=== PATIENT | male | born 2000 | race Caucasian/White ===

== ENCOUNTER 2021-06-24 21:42 | Inpatient (IN) | payer OTHER ==
[~2021-06-24] VITALS: Ht 106.7 cm; Wt 44.0 kg
--- NOTE | 2021-06-24 23:45 | NUR ---
RT NOTE Pt rec'd on mech vent via Shiley 6 DCT. pt on noted settings given from RN in ambulance. Pt shows no signs of resp distress or sob. track is patent and secured. Pt sx'd for thick mod amt of pale yellow secretions. Vent plugged into red outlet. Alarms are set and audible. Ambu bag and emergency spare trach is bedside. Will continue to monitor closely. Addendum: 06/25/21 at 0214 by SATYA CAMPBELL RT Amended: Links added.
[2021-06-25] MEDS ORDERED: ONDANSETRON HCL/PF 4 MG/2 ML VIAL IVP PRN
[2021-06-25] MEDS ORDERED: LORAZEPAM INJ 2 MG/ML VIAL IV PRN ×2
[2021-06-25] MEDS ORDERED: HYDROCODONE/APAP 5/325MG TABLET GT PRN
[2021-06-25] MEDS ORDERED: MORPHINE SULFATE INJ 2 MG/ML DISP.SYRIN IV PRN
[2021-06-25] MEDS ORDERED: IV NS 0.9% 1,000 ML IV PRN
[2021-06-25] MEDS ORDERED: Z GUARD REMEDY 2 OZ OINT TP PRN
[2021-06-25 00:04] VITALS: BP 109/66
--- NOTE | 2021-06-25 00:23 | NUR ---
TELE-TD/CURVE SAW OPERATOR DR. BEAR AT BEDSIDE TO EVALUATE PT. PT HAS A LEFT FEMORAL CENTRAL LINE THAT CAN NOT BE IDENTIFIED AT THIS TIME. PER DR. BEAR DO NOT USE THIS LINE. WILL CONTINUE TO MONITOR THE PT.
[2021-06-25] MEDS ORDERED: METRONIDAZOLE 500MG/ NS 100ML 100 ML IV ONE ×2 (00:27→05:38)
[2021-06-25] MEDS ORDERED: ALBUTEROL SULFATE 8 GM HFA.AER.AD IH PRN (00:30)
[2021-06-25] MEDS ORDERED: DEXTROSE 50%-WATER 50 ML DISP.SYRIN IV PRN (00:30)
[2021-06-25] MEDS: METRONIDAZOLE 500MG/ NS 100ML 500 MG in PREMIX 1 EA IV SCH ×5 (00:31→23:47)
[2021-06-25] MEDS ORDERED: VANCOMYCIN HCL 0.75 GM in IV D5W 250 ML IV ONE (02:00)
[2021-06-25] MEDS ORDERED: VANCOMYCIN 1 GM VIAL ONE (02:21)
[2021-06-25] MEDS: ENOXAPARIN SODIUM 30 MG/0.3 ML DISP.SYRIN SQ SCH ×2 (02:22→21:12)
--- NOTE | 2021-06-25 02:26 | NUR ---
MED NOTE: ALL MEDICATIONS ADMINISTERED UNDER VERIFIED DOSES IN eMAR.
--- NOTE | 2021-06-25 03:31 | NUR ---
TELE-TD/MANAGER BALANCE PT NOTED TO BE VERY FLUSHED POST VANCO INFUSION. DR. BEAR MADE AWARE NEW ORDERS RECEIVED AND CARRIED OUT.
[2021-06-25 04:00] VITALS: BP 113/66
[2021-06-25] MEDS: diphenhydrAMINE HCL 50 MG/ML VIAL IV PRN ×2 (04:09→18:28)
[2021-06-25 04:29] LABS: ABG BASE EXCESS -2.1 mmol/L; ABG OXYGEN SATURATION 98.4 % (92.0-98.5); ABG PCO2 40.1 mmHg (35.0-45.0); ABG PH 7.374 (7.350-7.450); AaDO2 106.1 mmHg; COHb 0.6 % (0.5-1.5); MetHb 0.3 % (0.0-1.5); O2Hb 97.5 % (94.0-97.0); PEEP,BG 5 cm H2O; SITE, ABG Left Brachial; VENT MODE, BG AC 18 400 40% +5; VT, ABG 400 mL
[2021-06-25] MEDS: GLUCERNA 1.2 1,000 ML BOTTLE GT PRN (05:36)
[2021-06-25] MEDS: BLOOD SUGAR DIAGNOSTIC 1 EACH STRIP IN SCH ×4 (05:59→23:41)
[2021-06-25 07:28] LABS: BASOPHILS # (AUTO) 0.1 K/uL (0.0-0.2); BASOPHILS % (AUTO) 0.5 % (0.0-2.0); EOSINOPHILS % (AUTO) 4.5 % (0.0-6.0); HEMATOCRIT 39 % (39-51); HEMOGLOBIN 12.6 g/dL (13.5-17.5); LYMPHOCYTES # (AUTO) 1.9 K/uL (0.8-4.8); LYMPHOCYTES % (AUTO) 17.8 % (20.0-44.0); MEAN CORPUSCULAR HGB CONC 33 g/dl (31.0-36.0); MEAN CORPUSCULAR VOLUME 92 fL (80-96); MONOCYTES # (AUTO) 0.7 K/uL (0.1-1.30); MONOCYTES % (AUTO) 6.2 % (2.0-12.0); NEUTROPHILS # (AUTO) 7.6 K/uL (1.8-8.9); PLATELET COUNT (AUTO) 165 K/uL (150-450); RED BLOOD CELL COUNT(AUTO) 4.17 MIL/uL (4.5-6.0); WHITE BLOOD COUNT (AUTO) 10.7 K/uL (4.3-11.0)
--- NOTE | 2021-06-25 07:30 | NUR ---
RN NOTES PT FOUND SEMI FOWLERS POSITION DISPLAYING NO S/S OF DISTRESS, FLACC = 0 AND BILATERAL RISE AND FALL OF THE CHEST ON MECH TRACH VENT. PT UNABLE TO COMMUNICATE AND MAKE NEEDS KNOWN. PEG INTACT AND FEEDING PROCEEDING AT 65 ML/HR STARTED RECENTLY SO RESIDUAL WILL BE ASSESSED SHORTLY. R FOOT 24G PATIENT AND INTACT. ST ON THE MONITOR. RN WILL MONITOR AND TREAT THROUGHOUT SHIFT. SAFETY MEASURES IN PLACE BED LOCKED AND IN LOWEST POSITION, SIDE RAILS UPX2, CALL LIGHT WITHIN REACH, BED ALARM ARMED.
[2021-06-25 08:00] VITALS: BP 120/71
[2021-06-25] MEDS ORDERED: SENN1TAB77 GT (08:31)
[2021-06-25] MEDS ORDERED: FURO-145 GT (08:31)
[2021-06-25] MEDS ORDERED: SIME80TA15 GT (08:31)
[2021-06-25] MEDS ORDERED: ALBU8.5H8 IH (08:31)
[2021-06-25] MEDS ORDERED: METO-295 GT (08:31)
[2021-06-25] MEDS ORDERED: GUAI100S11 GT (08:31)
[2021-06-25] MEDS ORDERED: TOPI25TA GT (08:31)
[2021-06-25] MEDS ORDERED: LOPE2CAP14 GT (08:31)
[2021-06-25] MEDS ORDERED: METF-440 GT (08:31)
[2021-06-25] MEDS ORDERED: NUT.250L18 GT (08:31)
[2021-06-25] MEDS ORDERED: BACL10TA GT (08:31)
[2021-06-25] MEDS ORDERED: ENOX30DI SQ (08:31)
[2021-06-25] MEDS ORDERED: LORA-258 GT (08:31)
[2021-06-25] MEDS ORDERED: SPIR25TA6 GT (08:31)
[2021-06-25] MEDS ORDERED: POTA20PA3 GT (08:31)
[2021-06-25] MEDS ORDERED: INSU100I26 SQ (08:31)
[2021-06-25] MEDS ORDERED: METO25TA20 GT (08:31)
[2021-06-25] MEDS ORDERED: MAGN400O6 GT ×2 (08:31)
[2021-06-25] MEDS ORDERED: LEVE100S GT (08:31)
[2021-06-25] MEDS ORDERED: FAMO20TA8 GT (08:31)
[2021-06-25] MEDS ORDERED: CALC500T13 GT (08:31)
[2021-06-25] MEDS ORDERED: PHEN100C4 GT (08:31)
[2021-06-25] MEDS ORDERED: ONDA4TAB5 GT (08:31)
[2021-06-25] MEDS ORDERED: CHOL400T GT (08:31)
--- NOTE | 2021-06-25 08:59 | NUR ---
WOUND CARE CONSULT: REVIEWED CHART, NURSING DOCUMENTATION AND PHOTO WHICH INDICATES SACRAL DEEP TISSUE INJURY, PRESENT ON ADMISSION. RECOMMENDATIONS MADE FOR SKIN PROTECTION. DISCUSSED WITH NURSING STAFF. FIRST STEP LOW AIRLOSS MATTRESS ORDERED. MD IN AGREEMENT WITH PLAN OF CARE.
[2021-06-25] MEDS: PANTOPRAZOLE 40 MG VIAL IV SCH (09:31)
[2021-06-25] MEDS: CEFEPIME 1 GM in IV D5W 50 ML IV SCH ×2 (09:31→21:09)
[2021-06-25 10:19] LABS: CALCIUM, SERUM 8.5 mg/dL (8.5-10.1); CREATININE 0.3 mg/dL (0.6-1.3); MAGNESIUM 2.1 mg/dL (1.8-2.4); PHOSPHORUS 2.7 mg/dL (2.5-4.9)
[2021-06-25 10:22] LABS: POTASSIUM 2.8 mmol/L (3.5-5.1)
--- NOTE | 2021-06-25 10:22 | NUR ---
CRITICAL LAB [facility] CALLED AND GAVE CRITICAL LAB. PT K 2.8. RN READ BACK LAB TO CONFIRM AND WILL CONTACT PROVIDER.
--- NOTE | 2021-06-25 10:35 | NUR ---
MD COMMUNICATION RN SPOKE TO MICHELL ROQUE. ACKNOWLEDGED CRITICAL LAB. STATED HE WILL PUT IN ORDERS.
[2021-06-25] MEDS: DEXAMETHASONE SOD PHOSPHATE 10 MG/ML VIAL IV SCH (10:45)
[2021-06-25] MEDS ORDERED: POTASSIUM CL. PREMIX PERIPHER. 50 ML ONE (11:21)
[2021-06-25] MEDS: POTASSIUM CL. PREMIX PERIPHER. 50 ML IV SCH ×5 (11:22→15:07)
[2021-06-25] MEDS ORDERED: SIMETHICONE 80 MG TAB.CHEW GT PRN (11:30)
[2021-06-25] MEDS ORDERED: LOPERAMIDE HCL (2 MG CAP) 2 MG CAPSULE GT PRN (11:30)
[2021-06-25] MEDS ORDERED: BACLOFEN (10 MG) 10 MG TABLET GT PRN (11:30)
[2021-06-25] MEDS ORDERED: MAGNESIUM HYDROXIDE 30 ML UDC GT PRN (11:30)
[2021-06-25] MEDS ORDERED: LORAZEPAM 0.5 MG TABLET GT PRN (11:30)
[2021-06-25] MEDS ORDERED: METOCLOPRAMIDE HCL 10 MG TABLET GT PRN (11:30)
[2021-06-25 12:00] VITALS: BP 113/75
[2021-06-25] MEDS ORDERED: ONDANSETRON HCL 4 MG/5 ML SOLUTION GT PRN (12:00)
[2021-06-25] MEDS: POTASSIUM CHLORIDE 20 MEQ POWDER PACKET GT SCH ×2 (13:06→17:31)
[2021-06-25 13:14] LABS: THYROID STIMULATING HORMONE 0.927 uIU/mL (0.358-3.74)
[2021-06-25] MEDS: VANCOMYCIN 0.75 GM in IV D5W 250 ML IV SCH (14:31)
[2021-06-25 16:00] VITALS: BP 119/81
--- NOTE | 2021-06-25 19:10 | NUR ---
RN NOTES PT FOUND SEMI FOWLERS POSITION DISPLAYING NO S/S OF DISTRESS, FLACC = 0 AND BILATERAL RISE AND FALL OF THE CHEST ON MECH TRACH VENT. PT A&OX0, NON-VERBAL. 120 ML RESIDUAL, FEEDING DIALED DOWN FOR 1 HR. R FOOT 24G & L UA MIDLINE PATIENT AND INTACT. ST ON THE MONITOR. SAFETY MEASURES IN PLACE BED LOCKED AND IN LOWEST POSITION, SIDE RAILS UPX2, CALL LIGHT WITHIN REACH, BED ALARM ARMED. SBAR AND REPORT GIVEN TO MANAGER PROGRAMMING NURSE, ALL QUESTIONS ANSWERED. PT ENDORSED IN STABLE CONDITION FOR JESSI.
--- NOTE | 2021-06-25 19:35 | NUR ---
RN NOTE PT RECEIVED IN BED. PT IS TRACH/VENT WITH SETTINGS AT S#6, AC 14, TV 400, FIO2 40, AND PEEP 5. TOLERATING VENT SETTINGS WELL. PT IS ALERT, BUT NON-VERBAL. PT ON TELE MONITOR SHOWING NSR WELL ST. G-TUBE NOTED. GLUCERNA RUNNING AT 65 ML/HR. PT TOLERATING WELL. IV ACCESS ON RIGHT FOOT #24 AND LEFT UPPER ARM MIDLINE NOTED. LINES FLUSHED, PATENT, AND INTACT WITH NO INFILTRATION. ALL SAFETY MEASURES IMPLEMENTED. BED ALARM ON. BED LOCKED AND IN LOWEST POSITION. WILL CONTINUE TO MONITOR AND ASSESS FOR ANY CHANGES.
[2021-06-25 20:00] VITALS: BP 115/72
--- NOTE | 2021-06-25 20:59 | NUR ---
RN NOTE SPOKE WITH DR. CULLEN BEAR ABOUT PT SCHEDULED MEDICATION OF LOPRESSOR 25MG AND HOW BP IS 115/72 AND HR IS 98-110s. DR. BEAR SAID TO HOLD SCHEDULED LOPRESSOR. ORDER NOTED AND CARRIED OUT.
[2021-06-25] MEDS: METOPROLOL TARTRATE 25 MG TABLET GT SCH (21:00)
[2021-06-25] MEDS: LEVETIRACETAM SOL (5 ML) 100 MG/ML UDC GT SCH (21:09)
[2021-06-25] MEDS: FAMOTIDINE (20 MG) 20 MG TABLET GT SCH (21:10)
[2021-06-25] MEDS: TOPIRAMATE 25 MG TABLET GT SCH (21:10)
[2021-06-25] MEDS: CALCIUM CARBONATE 500 MG TAB.CHEW GT SCH (21:10)
[2021-06-25] MEDS: PHENYTOIN EXTENDED RELEASE 100 MG CAPSULE PO SCH (21:11)
[2021-06-25] MEDS: IV 1/2NS 1000 ML 1,000 ML IV PRN (21:11)
[2021-06-26] VITALS: BP 103/63
[2021-06-26] MEDS: VANCOMYCIN 0.75 GM in IV D5W 250 ML IV SCH (01:56)
[2021-06-26] MEDS: GLUCERNA 1.2 1,000 ML BOTTLE GT PRN (03:55)
[2021-06-26 04:00] VITALS: BP 100/62
[2021-06-26] MEDS: diphenhydrAMINE HCL 50 MG/ML VIAL IV PRN ×3 (05:15→23:23)
[2021-06-26] MEDS: BLOOD SUGAR DIAGNOSTIC 1 EACH STRIP IN SCH ×4 (05:21→23:17)
[2021-06-26] MEDS: METRONIDAZOLE 500MG/ NS 100ML 500 MG in PREMIX 1 EA IV SCH ×4 (05:25→23:19)
--- NOTE | 2021-06-26 06:51 | NUR ---
RN NOTE NO CHANGES IN PT CONDITION DURING SHIFT. PT IS TRACH/VENT WITH SETTINGS AT S#6, AC 14, TV 400, FIO2 40, AND PEEP 5. TOLERATING VENT SETTINGS WELL WITH OXYGEN SATURATION 100%. PT IS NON-VERBAL. PT ON TELE MONITOR SHOWING NSR WELL ST FROM 90s-120s. GLUCERNA RUNNING AT 65 ML/HR. PT TOLERATING WELL. IV ACCESS ON RIGHT FOOT #24 AND LEFT UPPER ARM MIDLINE NOTED. LINES FLUSHED, PATENT, AND INTACT WITH NO INFILTRATION. ALL DUE MEDS GIVEN ORDERED. PT KEPT CLEAN AND COMFORTABLE. ALL SAFETY MEASURES IMPLEMENTED. BED ALARM ON. BED LOCKED AND IN LOWEST POSITION. WILL ENDORSE TO MORNING SHIFT RN FOR JESSI.
--- NOTE | 2021-06-26 07:28 | NUR ---
RN OPENING NOTES PT IS IN BED STABLED WITH TRACH/VENT. SETTINGS AT S#6, AC 14, TV 400, FIO2 40, AND PEEP 5. OXYGEN SATURATION 100%. VITAL SIGNS WNL. PT ON TELE MONITOR SHOWING NSR. GLUCERNA RUNNING AT 65 ML/HR. PT TOLERATING WELL. IV ACCESS ON RIGHT FOOT #24 AND LEFT UPPER ARM MIDLINE NOTED. LINES FLUSHED, PATENT, AND INTACT WITH NO INFILTRATION. PT KEPT CLEAN AND COMFORTABLE. ALL SAFETY MEASURES IMPLEMENTED. BED ALARM ON. BED LOCKED AND IN LOWEST POSITION. Addendum: 06/26/21 at 1518 by FEDE ELIZALDE RN ADDENDUM D5 1/2 NS INFUSING WELL ON LADARIUS MIDLINE. LEFT FEMORAL LINE IN PLACE CDI DRESSING [DO NOT USE]. SEE NURSING FLOWSHEET FOR SKIN ISSUES. WILL TURN AND REPOSITION.
[2021-06-26 08:00] VITALS: BP 107/69
[2021-06-26] MEDS: POTASSIUM CHLORIDE 20 MEQ POWDER PACKET GT SCH ×3 (08:20→16:54)
[2021-06-26] MEDS: LEVETIRACETAM SOL (5 ML) 100 MG/ML UDC GT SCH ×2 (08:21→20:30)
[2021-06-26] MEDS: FAMOTIDINE (20 MG) 20 MG TABLET GT SCH ×2 (08:22→20:30)
[2021-06-26] MEDS: CHOLECALCIFEROL (VITAMIN D 3) 400 UNIT TABLET GT SCH (08:22)
[2021-06-26] MEDS: PHENYTOIN EXTENDED RELEASE 100 MG CAPSULE PO SCH ×2 (08:22→20:30)
[2021-06-26] MEDS: TOPIRAMATE 25 MG TABLET GT SCH ×2 (08:24→20:37)
[2021-06-26] MEDS: CALCIUM CARBONATE 500 MG TAB.CHEW GT SCH ×2 (08:24→20:30)
[2021-06-26] MEDS: DEXAMETHASONE SOD PHOSPHATE 10 MG/ML VIAL IV SCH (08:27)
[2021-06-26] MEDS: CEFEPIME 1 GM in IV D5W 50 ML IV SCH ×2 (08:27→20:47)
[2021-06-26] MEDS: PANTOPRAZOLE 40 MG VIAL IV SCH (08:28)
[2021-06-26 08:38] LABS: BASOPHILS # (AUTO) 0.1 K/uL (0.0-0.2); BASOPHILS % (AUTO) 0.5 % (0.0-2.0); EOSINOPHILS % (AUTO) 4.9 % (0.0-6.0); HEMATOCRIT 34 % (39-51); HEMOGLOBIN 11.6 g/dL (13.5-17.5); LYMPHOCYTES % (AUTO) 27.3 % (20.0-44.0); MEAN CORPUSCULAR HGB CONC 34 g/dl (31.0-36.0); MEAN CORPUSCULAR VOLUME 90 fL (80-96); MONOCYTES # (AUTO) 0.8 K/uL (0.1-1.30); MONOCYTES % (AUTO) 7.5 % (2.0-12.0); NEUTROPHILS # (AUTO) 6.6 K/uL (1.8-8.9); NEUTROPHILS % (AUTO) 59.8 % (43.0-81.0); PLATELET COUNT (AUTO) 201 K/uL (150-450); RED BLOOD CELL COUNT(AUTO) 3.81 MIL/uL (4.5-6.0); WHITE BLOOD COUNT (AUTO) 11.1 K/uL (4.3-11.0)
[2021-06-26] MEDS ORDERED: ENOXAPARIN SODIUM 30 MG/0.3 ML DISP.SYRIN SQ SCH (09:00)
[2021-06-26] MEDS: METOPROLOL TARTRATE 25 MG TABLET GT SCH ×2 (09:00→20:45)
[2021-06-26] MEDS: SENNOSIDES/DOCUSATE SODIUM 1 TAB TABLET GT SCH (09:02)
[2021-06-26] MEDS: MAGNESIUM HYDROXIDE 30 ML UDC GT SCH (09:02)
[2021-06-26] MEDS ORDERED: GLUCERNA 1.2 1,000 ML BOTTLE GT SCH (10:00)
--- NOTE | 2021-06-26 10:00 | NUR ---
RN NOTES G TUBE FEEDING CHANGED TO 80 ML/HR FOR 16 HOURS PER ORDERED. ON AT 1000 OFF AT 0200
[2021-06-26] MEDS: POTASSIUM CL. PREMIX PERIPHER. 50 ML IV SCH ×5 (10:49→14:58)
[2021-06-26 12:00] VITALS: BP 118/75
[2021-06-26] MEDS: INSULIN REGULAR, HUMAN 100 UNIT/ML 3 ML VIAL SQ PRN ×3 (12:50→23:25)
[2021-06-26] MEDS: VANCOMYCIN 1 GM in IV D5W 250 ML IV SCH ×2 (15:01→22:28)
[2021-06-26 16:00] VITALS: BP 109/62
--- NOTE | 2021-06-26 18:30 | NUR ---
RN CLOSING NOTES PT IS IN BED STABLED WITH TRACH/VENT. SETTINGS AT S#6, AC 14, TV 400, FIO2 40, AND PEEP 5. OXYGEN SATURATION 100%. VITAL SIGNS WNL. PT ON TELE MONITOR SHOWING NSR. GLUCERNA RUNNING AT 80 ML/HR. PT TOLERATING WELL. IV ACCESS ON RIGHT FOOT #24 AND LEFT UPPER ARM MIDLINE NOTED. LEFT FEMORAL LINE. LINES FLUSHED, PATENT, AND INTACT WITH NO INFILTRATION. PT KEPT CLEAN AND COMFORTABLE. ALL SAFETY MEASURES IMPLEMENTED. BED ALARM ON. BED LOCKED AND IN LOWEST POSITION. WILL ENDORSE TO AGRICULTURAL AGENT
--- NOTE | 2021-06-26 19:10 | NUR ---
RN NOTE RECEIVED PATIENT IN BED RESTING NON VERBAL OBTUNDED ON MECHANICAL VENT O2:99% IV SITE IS ON LEFT UPPER ARM MIDLINE AND RIGHT FOOT INTACT PATENT ON IV HYDRATION 1/2 NS 75CC/HR,ON G-TUBE FEEDING GLUCERNA 1.2 80CC/HR CHECKED PLACEMENT IN PLACE NO RESIDUAL NOTED,INCONTINENT TO BOWEL/BLADDER HEAD OF THE BED ELEVATED,SAFETY MEASURE IMPLEMENT,CONTINUE TO MONITOR.
[2021-06-26 20:00] VITALS: BP 108/58
--- NOTE | 2021-06-26 20:30 | NUR ---
PT RCVD TRACHED WITH SHILEY 6 DCT ON VENT WITH THE SETTINGS OF AC 18, 400,40%, PEEP 5. TRACH IS PATENT AND SECURED . SUCTIONED MODERATE AMOUNT OF YELLOW THICK SECRETIONS. VENT PLUGGED INTO RED OUTLET , VENT ALARMS ON AND AUDIBLE. NO RESPIRATORY DISTRESS NOTED AT THIS TIME. WILL CONTINUE TO MONITOR PT T/O THE SHIFT.
[2021-06-26] MEDS: ENOXAPARIN SODIUM 30 MG/0.3 ML DISP.SYRIN SQ SCH (20:56)
[2021-06-26] MEDS: IV 1/2NS 1000 ML 1,000 ML IV PRN (23:16)
[2021-06-27] VITALS: BP 105/59
[2021-06-27 04:00] VITALS: BP 105/63
[2021-06-27] MEDS: BLOOD SUGAR DIAGNOSTIC 1 EACH STRIP IN SCH ×2 (05:36→11:28)
[2021-06-27] MEDS: METRONIDAZOLE 500MG/ NS 100ML 500 MG in PREMIX 1 EA IV SCH ×2 (05:38→12:03)
--- NOTE | 2021-06-27 06:54 | NUR ---
RN NOTE PATIENT REMAINS ON IN BED RESTING NON VERBAL OBTUNDED ON MECHANICAL VENT O2:99% IV SITE IS ON LEFT UPPER ARM MIDLINE AND RIGHT FOOT INTACT PATENT ON IV HYDRATION 1/2 NS 75CC/HR,ON G-TUBE FEEDING GLUCERNA 1.2 80CC/HR OFF AT 02:00 AM AND ON ON 10:00 AM, ALL DUE MEDS GIVEN MD ORDERED KEEP CLEAN AND DRY ALL THE TIME,REPOSITIONED EVERY 2 HOURS HEAD OF THE BED ELEVATED ENDORSE NEXT COMING SHIFT FOR CONTINUATION OF CARE.
[2021-06-27 06:55] LABS: BASOPHILS # (AUTO) 0.1 K/uL (0.0-0.2); BASOPHILS % (AUTO) 0.6 % (0.0-2.0); EOSINOPHILS % (AUTO) 4.5 % (0.0-6.0); HEMATOCRIT 34 % (39-51); HEMOGLOBIN 11.1 g/dL (13.5-17.5); MEAN CORPUSCULAR HGB CONC 33 g/dl (31.0-36.0); MEAN CORPUSCULAR VOLUME 93 fL (80-96); MONOCYTES % (AUTO) 9.8 % (2.0-12.0); NEUTROPHILS # (AUTO) 4.8 K/uL (1.8-8.9); NEUTROPHILS % (AUTO) 46.1 % (43.0-81.0); PLATELET COUNT (AUTO) 205 K/uL (150-450); WHITE BLOOD COUNT (AUTO) 10.3 K/uL (4.3-11.0)
[2021-06-27] MEDS: VANCOMYCIN 1 GM in IV D5W 250 ML IV SCH (07:04)
[2021-06-27 07:35] LABS: CALCIUM, SERUM 7.7 mg/dL (8.5-10.1); CREATININE 0.2 mg/dL (0.6-1.3); MAGNESIUM 2.4 mg/dL (1.8-2.4); PHOSPHORUS 2.5 mg/dL (2.5-4.9); POTASSIUM 3.5 mmol/L (3.5-5.1)
--- NOTE | 2021-06-27 07:45 | NUR ---
TELE/RN OPENING NOTE RECEIVED PATIENT IN BED, RESTING NON VERBAL OBTUNDED ON MECHANICAL VENT O2:99% IV SITE IS ON LEFT UPPER ARM MIDLINE AND RIGHT FOOT INTACT PATENT ON IV HYDRATION 1/2 NS 75CC/HR,ON G-TUBE FEEDING GLUCERNA 1.2 80CC/HR OFF AT 02:00 AM AND ON ON 10:00 AM. HEAD OF THE BED ELEVATED. SAFETY PRECAUTIONS IN PLACED: BED LOCKED ON LOWEST POSITION, SIDE RAILS UPX3, CALL LIGHT WITHIN REACH. WILL CONTINUE TO MONITOR.
[2021-06-27 08:00] VITALS: BP 119/68
[2021-06-27] MEDS: PANTOPRAZOLE 40 MG VIAL IV SCH (08:32)
[2021-06-27] MEDS: LEVETIRACETAM SOL (5 ML) 100 MG/ML UDC GT SCH (08:33)
[2021-06-27] MEDS: SENNOSIDES/DOCUSATE SODIUM 1 TAB TABLET GT SCH (08:33)
[2021-06-27] MEDS: PHENYTOIN EXTENDED RELEASE 100 MG CAPSULE PO SCH (08:33)
[2021-06-27] MEDS: MAGNESIUM HYDROXIDE 30 ML UDC GT SCH (08:33)
[2021-06-27] MEDS: DEXAMETHASONE SOD PHOSPHATE 10 MG/ML VIAL IV SCH (08:33)
[2021-06-27] MEDS: CHOLECALCIFEROL (VITAMIN D 3) 400 UNIT TABLET GT SCH (08:33)
[2021-06-27] MEDS: POTASSIUM CHLORIDE 20 MEQ POWDER PACKET GT SCH ×2 (08:33→12:03)
[2021-06-27] MEDS: TOPIRAMATE 25 MG TABLET GT SCH (08:34)
[2021-06-27] MEDS: CALCIUM CARBONATE 500 MG TAB.CHEW GT SCH (08:34)
[2021-06-27] MEDS: FAMOTIDINE (20 MG) 20 MG TABLET GT SCH (08:34)
[2021-06-27] MEDS: CEFEPIME 1 GM in IV D5W 50 ML IV SCH (08:45)
[2021-06-27] MEDS: METOPROLOL TARTRATE 25 MG TABLET GT SCH (08:45)
[2021-06-27] MEDS ORDERED: LEVO500T90 PO (10:51)
--- NOTE | 2021-06-27 11:04 | NUR ---
folllowup PCR result [facility] still pending per will placed pt. on will call since snf need final PCR RESULT PRIOR TO DISCHARGE , NOTIFIED.
--- NOTE | 2021-06-27 11:12 | NUR ---
PER LAB PCR SPECIMEN LEAK AND UNABLE TO READ REQUESTING TO RESEND SPECIMEN.
--- NOTE | 2021-06-27 11:19 | NUR ---
PER CM SEND RAPID TEST FOR NOW, AWARE.
--- NOTE | 2021-06-27 11:33 | NUR ---
RAPID TEST DONE,SPECIMEN SEND TO LAB
[2021-06-27 12:38] VITALS: BP 114/73
--- NOTE | 2021-06-27 15:43 | NUR ---
TELE/FITNESS MANAGEMENT DIRECTOR NOTES PATIENT IS MEDICALLY STABLE AND DR. GALARZA ORDERED DISCHARGE BACK TO [facility] [place]. CALLED SNF AND ENDORSED PATIENT TO [facility] CHARGE NURSE. PATIENT IS ALERT BUT NON-VERBAL, BEDBOUND. LEFT UPPER ARM MIDLINE TO REMAIN IN PLACED PER [facility]. EMT PICKED UP PATIENT FOR TRANSPORTATION.
== END 2021-06-27 15:30 | DRG 720 ==
LOC: TELE1 23:27 → TELE-TD 06-25 00:38 → TELE1 06-25 07:38
PROVIDERS: ADMIT Nurse Practitioner Acute Care; ATTEND Internal Medicine
PROC: 5A1945Z Respiratory Ventilation, 24-96 Consecutive Hours (ICD-10-PCS; principal; 2021-06-24)
PROC: 05H633Z Insertion of Infusion Device into Left Subclavian Vein, Percutaneous Approach (ICD-10-PCS; 2021-06-25)
PROC: B547ZZA Ultrasonography of Left Subclavian Vein, Guidance (ICD-10-PCS; 2021-06-25)
DX: A41.9 Sepsis, unspecified organism (principal); J96.21 Acute and chronic respiratory failure with hypoxia; G93.49 Other encephalopathy; J15.6 Pneumonia due to other Gram-negative bacteria; J15.9 Unspecified bacterial pneumonia; E44.0 Moderate protein-calorie malnutrition; D68.59 Other primary thrombophilia; J39.8 Other specified diseases of upper respiratory tract; Z99.11 Dependence on respirator [ventilator] status; E11.9 Type 2 diabetes mellitus without complications; G40.909 Epilepsy, unspecified, not intractable, without status epilepticus; G80.9 Cerebral palsy, unspecified; R13.10 Dysphagia, unspecified; Z68.38 Body mass index [BMI] 38.0-38.9, adult; Z87.01 Personal history of pneumonia (recurrent); Z20.822 Contact with and (suspected) exposure to COVID-19; Z79.84 Long term (current) use of oral hypoglycemic drugs; Q32.2 Congenital bronchomalacia
CPT/HCPCS: 31720; 36410; 36415; 36600; 71045-TC; 80048-TC; 80061-TC; 80202-TC; 82962-TC; 83735-TC; 84100-TC; 84132-TC; 84443-TC; 85025-TC; 87081-TC; 94003-TC; 94760-TC; 94762-TC; 94799-TC; A4216; A4623; A6253; A6403; A7526; C9113; G0378; J0692; J1100; J1200; J1650; J1815; J1953; J3370; J3480; J3490; J7030; J7050; J7060; Q0162; U0003